=== PATIENT | female | born 1995 | race Two or more races ===

== ENCOUNTER 2025-03-20 17:29 | Emergency (ER) | payer BC, SELFPAY ==
[2025-03-20 17:47] VITALS: BP 164/102; PULSE 107; RESP 20; TEMP 37.1; O2SAT 100; BMI 34.2
--- NOTE | 2025-03-20 17:51 | XR_ITS ---
Examination: Complete OB ultrasound, less than 14 weeks, transabdominal Date and time of exam: March 20, 2025 at 1936 hours INDICATIONS: Onset pelvic pain beginning 2 days ago Technique: Obstetrical ultrasound images less than 14 weeks performed via transabdominal imaging Findings: Uterus 6.8 cm endometrial stripe 1.0 cm No uterine mass or intrauterine gestation Right ovary 4.7 cm arterial flow 38 mm cyst Upper review obscured by bowel gas IMPRESSION: No uterine mass or intrauterine gestation Left ovarian cyst 3.3 x 3.8 x 3.8 cm
--- NOTE | 2025-03-20 17:51 | PD.EDRME ---
Rapid Medical Screening Exam [facility] Arrival date/time: 03/20/25 17:29 29-year-old female with no known medical history presents to the emergency room with a chief complaint of right lower quadrant and right sided pelvic pain x 2 days. Patient is currently 4 weeks . She is a G4, P0. Patient denies any vaginal bleeding or dysuria. I have greeted and performed a focused initial assessment of this patient. A comprehensive ED assessment and evaluation of the patient, analysis of all test results, and completion of the medical decision making process will be conducted by additional ED providers. Chief Complaint: Abdominal Pain Vital signs: Vital Signs Temperature 98.7 F 03/20/25 17:47 Pulse Rate 107 H 03/20/25 17:47 Respiratory Rate 20 03/20/25 17:47 Blood Pressure 164/102 H 03/20/25 17:47 Pulse Oximetry (%) 100 03/20/25 17:47 Oxygen Delivery Method Room Air 03/20/25 17:47 Vital signs reviewed by provider: Yes
[2025-03-20 18:08] LABS: Basophils % (Auto) 0 % (0-2.5); Eosinophils % (Auto) 0 % (0-10); Hematocrit 35.5 % (36.0-46.0); Hemoglobin 12.4 g/dL (12.0-16.0); Immature Granulocytes % (Auto) 0 % (0-0); Immature Granulocytes Auto 0.03 Thou/mm3 (0.00-0.00); Lymphocytes # (Auto) 2.3 Thou/mm3 (1.0-4.8); Lymphocytes % (Auto) 24 % (10-50); Mean Corpuscular HGB Conc 34.9 g/dl (31.0-37.0); Mean Corpuscular Hemoglobin 29.7 pg (25.0-35.0); Mean Corpuscular Volume 85 fL (80-100); Monocytes # (Auto) 0.4 Thou/mm3 (0.0-0.8); Monocytes % (Auto) 5 % (0-12); Neutrophils # (Auto) 6.6 Thou/mm3 (1.8-7.7); Neutrophils % (Auto) 70 % (37-80); Nucleated Red Blood Cell % 0 /100 WBC (0); Platelet Count 251 Thou/mm3 (140-440); RDW Standard Deviation 39.8 fL (36.4-46.3); Red Blood Count 4.17 Miln/mm3 (4.00-5.20); White Blood Count 9.5 Thou/mm3 (3.6-11.0)
--- NOTE | 2025-03-20 18:16 | XR_ITS ---
Examination: Abdomen sonogram, Limited Date and time of exam: March 20, 2025 1945 hours INDICATIONS: Right lower abdominal pelvic pain beginning 2 days ago Technique: Real-time valderrama scale transabdominal sonographic images of the abdomen obtained. Findings: No sonographic visualization appendix IMPRESSION: No sonographic visualization appendix
[2025-03-20 18:32] LABS: Alanine Aminotransferase 15 U/L (10-49); Albumin, Serum 4.4 gm/dL (3.5-5.0); Albumin/Globulin Ratio 1.6 (1.2-2.2); Alkaline Phosphatase 61 U/L (46-116); Anion Gap 11 (7-16); Aspartate Amino Transferase 16 U/L (0-34); BUN/Creatinine Ratio 9 Ratio (12-20); Bilirubin,Total 0.3 mg/dL (0.3-1.2); Blood Urea Nitrogen 7 mg/dL (9-23); Calcium 8.9 mg/dL (8.3-10.6); Calcium (Corrected) 8.9 mg/dL (8.5-10.1); Carbon Dioxide 23.2 mMol/L (20.0-31.0); Chloride 105 mMol/L (98-107); Creatinine (Component) 0.8 mg/dL (0.6-1.3); Estimated Creatinine Clearance 98.5 mL/min (>60); Globulin 2.8 gm/dL (2.3-3.5); Glucose 90 mg/dL (74-106); Osmolality,Calculated 275 (275-295); Potassium 3.5 mMol/L (3.4-5.1); Sodium 139 mMol/L (136-145); Total Protein 7.2 gm/dL (5.7-8.2); eGFR > 60 See Note
[2025-03-20 18:37] LABS: Beta HCG,Quantitative 1837 mIU/mL (<5.0)
[2025-03-20 18:45] LABS: Collection Type, Urine Clean Catch
[2025-03-20 18:57] LABS: Bacteria,Urine Rare; Bilirubin,Urine Negative (Negative); Blood,Urine Negative (Negative); Clarity,Urine Clear (Clear/Hazy); Color,Urine Yellow (Lt Yel-Yel); Glucose, Urine Negative (Negative); Ketones,Urine 3+ (Negative); Leukocyte Esterase,Urine Positive (Negative); Nitrite,Urine Negative (Negative); Protein,Urine Trace (Neg - Trace); RBC,Urine 5 /hpf (0-3); Squamous Epithelial Cell,Urine 15 /hpf (0-5); Urobilinogen,Urine Negative mg/dL (0.0-1.0); WBC,Urine 13 /hpf (0-5)
--- NOTE | 2025-03-20 20:09 | EDNOTE_ITS ---
ED Abdominal Pain RME/HPI General Chief Complaint: Abdominal Pain Stated complaint: Right lower abdominal pain X 2 days, 4 weeks OB Time seen by provider: 03/20/25 18:16 Arrival date/time: 03/20/25 17:29 RME / HPI RME / HPI narrative: 03/20/25 17:29 29-year-old female with no known medical history presents to the emergency room with a chief complaint of right lower quadrant and right sided pelvic pain x 2 days. Patient is currently 4 weeks . She is a G4, P0. Patient denies any vaginal bleeding or dysuria. I have greeted and performed a focused initial assessment of this patient. A comprehensive ED assessment and evaluation of the patient, analysis of all test results, and completion of the medical decision making process will be conducted by additional ED providers. DR CUI MAIN ED EVALUATION: 29 y/o 4-week female presents to ED c/o right-sided pelvic pain, RUE pain, and diarrhea x 2 days. She is . Patient contacted her OB and was advised to come in to ED due to concern for possible ectopic . Patient denies vaginal bleeding, dysuria, foul smelling urine, or any other associated symptoms or aggravating factors. No modifying factors, no radiation, no migration. No other pain reported overall. Related Data Previous Rx's ?Medication ?Instructions ?Recorded alprazolam 0.25 mg tablet (Xanax) 0.25 mg PO BID PRN a nxiety #14 tabs 01/10/24 Allergies Allergy/AdvReac Type Severity Reaction Status Date / Time fentanyl Allergy Verified 03/20/25 17:37 Review of Systems Review of Systems Systems Reviewed: All systems reviewed, normal except as documented Past Medical History Past Medical History PSYCHO/SOCIAL: Positive Anxiety ED Exam Narrative Physical exam: GENERAL APPEARANCE: alert and oriented x 4, well-developed, well-nourished, no acute distress VITALS: All vitals were reviewed and the pulse ox is 100% on room air, which is normal according to my interpretation. HEENT: Normocephalic, atraumatic; pupils equal, round, reactive to light; EOMI; mucous membranes pink, moist; oropharynx clear NECK: Supple LUNGS: CTABL; no wheezes, no rales, no rhonchi HEART: Regular rate, regular rhythm; normal S1, S2; no murmurs ABDOMEN: non distended; normal BS; soft, no tenderness, no guarding, no rebound; no masses, no organomegaly, no hernia BACK: no CVA tenderness EXTREMITIES: atraumatic; no edema NEUROLOGIC: awake; alert and oriented x4; cranial nerves II-XII grossly intact; no focal sensory or motor deficits PSYCHIATRIC: appropriate mood and affect SKIN: warm, dry, normal color; no rashes Course Quality Measures none Orders Category Date Time Status US OB <= 14 weeks fetus Stat Exams 03/20/25 17:51 Completed US abdomen limited Stat Exams 03/20/25 18:16 Completed ABO/RH Type Stat Lab 03/20/25 18:01 Completed Beta HCG,Quantitative Stat Lab 03/20/25 18:01 Completed CBC Stat Lab 03/20/25 18:01 Completed CMP [Comprehensive Metabolic Panel] Stat Lab 03/20/25 18:01 Completed UA [Urinalysis] Stat Lab 03/20/25 18:37 Completed Vital Signs Vital signs: Vital Signs Temperature 98.7 F 03/20/25 17:47 Pulse Rate 107 H 03/20/25 17:47 Respiratory Rate 20 03/20/25 17:47 Blood Pressure 164/102 H 03/20/25 17:47 Pulse Oximetry (%) 100 03/20/25 17:47 Oxygen Delivery Method Room Air 03/20/25 17:47 Abdominal Pain MDM MDM Narrative MDM Narrative:: Scribe Attestation: Belle Beal, marilia scribing for and in the presence of Dr. Cui. Provider Notation: Although this document has been carefully reviewed, there may still be some phonetic and other typographical errors.? These errors are purely grammatical due to imperfections in the software program and should not be construed in any way to? compromise the substance of the patient's medical care during this visit. Patient data External records reviewed:: [facility] previous records (Reviewed prior ED records from 01/10/24. Patient was seen for Acute anxiety.) Clinical information provided by:: patient Social determinants that could affect healthcare access:: none Patient has the following chronic illnesses:: Anxiety How is presenting disease/condition affected by chronic disease/condition?: exacerbated by Evaluation data The following diagnostics were reviewed and interpreted by me:: lab results and radiology exam(s) Lab and/or radiology exams considered but not ordered:: None Interpretation Summary: RADIOLOGY Abdomen US: Patient: SOFIA CORDERO I [facility]. Record#: [id number] Birthdate: 1995 Age/Sex: 29 / F Location: [facility] Attending Dr: Ordering Physician: Sakina Cui MD Date of Service: 03/20/25 Procedure(s): US abdomen limited Accession Number(s): [id number] cc: Nancy Sotelo; Yury Boyd MD; Sakina Cui MD~ Examination: Abdomen sonogram, Limited Date and time of exam: March 20, 2025 1945 hours INDICATIONS: Right lower abdominal pelvic pain beginning 2 days ago Technique: Real-time valderrama scale transabdominal sonographic images of the abdomen obtained. Findings: No sonographic visualization appendix IMPRESSION: No sonographic visualization appendix Dictated By: Yury Boyd MD Signed By: <Electronically signed by Yury Boyd MD in OV> 03/20/252031 US: Patient: SOFIA CORDERO I [facility]. Record#: [id number] Birthdate: 1995 Age/Sex: 29 / F Location: [facility] Attending Dr: Ordering Physician: Carlos Cope Date of Service: 03/20/25 Procedure(s): US OB <= 14 weeks fetus Accession Number(s): [id number] cc: Nancy Sotelo; Carlos Cope; Yury Boyd MD~ Examination: Complete OB ultrasound, less than 14 weeks, transabdominal Date and time of exam: March 20, 2025 at 1936 hours INDICATIONS: Onset pelvic pain beginning 2 days ago Technique: Obstetrical ultrasound images less than 14 weeks performed via transabdominal imaging Findings: Uterus 6.8 cm endometrial stripe 1.0 cm No uterine mass or intrauterine gestation Right ovary 4.7 cm arterial flow 38 mm cyst Upper review obscured by bowel gas IMPRESSION: No uterine mass or intrauterine gestation Left ovarian cyst 3.3 x 3.8 x 3.8 cm Dictated By: Yury Boyd MD Signed By:<Electronically signed by Yury Boyd MD in OV> 03/20/252030 Medications / Prescriptions Medications or Prescriptions considered but not ordered:: None Medication administrations:: See above Consultations Consultation(s) initiated? (list below): No Diagnosis Differential diagnosis abdominal pain: abdominal pain and other (Threatened miscarriage, Ovarian cyst, Incomplete , UTI, Ectopic .) Most likely diagnosis given after review of the tests above:: Abdominal pain in early Admission Indicated Admission indicated?: not indicated Explain why admission is indicated or not indicated:: Patient does not meet admission criteria. Admission Request Was there a request for admission?: No Disposition Plan Disposition Plan: Discharge Discharge Attestation Discharge Attestation: The patient and all family members were given an opportunity to ask questions and understood the discharge instructions. Discharge instructions specifically effects, indications for sooner follow up or return to the emergency department, and the expected course of current diagnosis. Patient condition: Stable Discharge Plan Plan Patient Disposition: HOME (Self Care) Prescriptions/Referrals Prescriptions/Med Rec: No Action alprazolam [Xanax] 0.25 mg tablet 0.25 mg PO BID PRN (Reason: anxiety) Qty: 14 0RF Referrals: Nancy Sotelo FNP-C [Primary Care Provider] - In 1 week Problem List Clinical Impression: Abdominal pain in early Patient/Caregiver Discharge Instructions Education Materials: ED Abdominal Pain Unkn Cause Fem Additional Instructions: Follow-up with your OB doctor on Sunday for recheck. Return to the emergency room if symptoms worsen, do not improve, or other concerns. Print Language: Yakut Stand Alone Forms: Sarina Award Info., Patient Portal Info Letter
[2025-03-20 21:16] VITALS: BP 144/98; PULSE 86; RESP 17; TEMP 36.9; O2SAT 100
== END 2025-03-20 21:47 | disposition home or self-care (01) ==
PROVIDERS: Nurse Practitioner Family; Emergency Provider Emergency Medicine; PCP Nurse Practitioner Family
DX: O34.81 Maternal care for other abnormalities of pelvic organs, first trimester (principal); N83.202 Unspecified ovarian cyst, left side; Z3A.01 Less than 8 weeks gestation of pregnancy
CPT/HCPCS: 36415; 76705; 76801; 80053; 81001; 84702; 85025; 86900; 86901; 99284

== ENCOUNTER 2025-03-22 06:51 | Emergency (ER) | payer BC, SELFPAY ==
[2025-03-22 06:54] VITALS: BMI 34.2
[2025-03-22 07:00] VITALS: BP 129/88; PULSE 91; RESP 16; TEMP 37.1; O2SAT 99
--- NOTE | 2025-03-22 07:15 | XR_ITS ---
Examination: Abdomen sonogram, Limited Date and time of exam: March 22, 2025, 0807 hrs. Indications: Pelvic pain beginning 4 days ago Technique: Real-time valderrama scale transabdominal sonographic images of the abdomen obtained. Findings: No sonographic visualization appendix Impression: No sonographic visualization appendix
--- NOTE | 2025-03-22 07:15 | XR_ITS ---
Examination: Complete OB ultrasound, less than 14 weeks, transabdominal Date and time of exam: March 22, 2025, 0809 hrs. Indications: Pelvic pain beginning 4 days ago Technique: Obstetrical ultrasound images less than 14 weeks performed via transabdominal imaging Findings: Uterus 8.8 cm endometrial stripe 1.25 cm, no uterine mass or intrauterine gestation. Right ovary 5.5 cm arterial flow, 3.7 x 3.3 cm simple cyst Left ovary obscured by bowel gas Impression: No uterine mass or intrauterine gestation Right ovarian simple cyst 3.7 x 3.1 x 3.3 cm
[2025-03-22 08:17] LABS: Collection Type, Urine Clean Catch
[2025-03-22 08:28] LABS: Basophils % (Auto) 1 % (0-2.5); Eosinophils % (Auto) 0 % (0-10); Hemoglobin 12.3 g/dL (12.0-16.0); Immature Granulocytes % (Auto) 1 % (0-0); Immature Granulocytes Auto 0.07 Thou/mm3 (0.00-0.00); Lymphocytes # (Auto) 1.5 Thou/mm3 (1.0-4.8); Lymphocytes % (Auto) 19 % (10-50); Mean Corpuscular HGB Conc 35.1 g/dl (31.0-37.0); Mean Corpuscular Hemoglobin 30.2 pg (25.0-35.0); Mean Corpuscular Volume 86 fL (80-100); Monocytes # (Auto) 0.5 Thou/mm3 (0.0-0.8); Monocytes % (Auto) 6 % (0-12); Neutrophils # (Auto) 5.7 Thou/mm3 (1.8-7.7); Neutrophils % (Auto) 73 % (37-80); Nucleated Red Blood Cell % 0 /100 WBC (0); Platelet Count 233 Thou/mm3 (140-440); RDW Standard Deviation 41.1 fL (36.4-46.3); Red Blood Count 4.07 Miln/mm3 (4.00-5.20); White Blood Count 7.9 Thou/mm3 (3.6-11.0)
--- NOTE | 2025-03-22 08:46 | PD.EDABDPN ---
ED Abdominal Pain RME/HPI General Chief Complaint: Abdominal Pain Stated complaint: ABD PAIN Time seen by provider: 03/22/25 06:59 Arrival date/time: 03/22/25 06:51 This is a case of 39-year-old female who came into the emergency room due to abdominal pain patient is 4 weeks 1 para 0 history of 1 miscarriage with regular checkup patient denies any vaginal bleeding vaginal spotting vaginal discharge fever chills nausea vomiting patient was seen here 2 days ago where everything were normal due to persistence of the symptoms this patient decided to sought consult here in the emergency room Source: patient Limitations: no limitations Related Data Previous Rx's ?Medication ?Instructions ?Recorded alprazolam 0.25 mg tablet (Xanax) 0.25 mg PO BID PRN anxiety #14 tabs 01/10/24 nitrofurantoin 100 mg PO Q12H 10 days #20 caps 03/22/25 monohydrate/macrocrystals 100 mg capsule (Macrobid) Allergies Allergy/AdvReac Type Severity Reaction Status Date / Time fentanyl Allergy Verified 03/22/25 06:55 Review of Systems Review of Systems Systems Reviewed: All systems reviewed, normal except as documented Constitutional Constitutional: Reports system reviewed and no additional complaints, except as documented ENT Ears, Nose, Mouth, and Throat: Denies dysphagia and Denies odynophagia Cardiovascular Cardiovascular: Reports system reviewed and no additional complaints, except as documented Respiratory Respiratory: Reports system reviewed and no additional complaints, except as documented and Reports as per HPI Gastrointestinal Gastrointestinal: Reports system reviewed and no additional complaints, except as documented, Reports as per HPI, Reports abdominal pain, Denies belching, Denies bloating, Denies change in bowel habits, Denies change in stool character, Denies coffee ground emesis, Denies constipation, Denies cramping, Denies diarrhea, Denies dyspepsia, Denies dysphagia, Denies early satiety, Denies excessive flatus, Denies fecal incontinence, Denies heartburn, Denies hematemesis, Denies hematochezia, Denies loose stools, Denies melena, Denies nausea, Denies odynophagia, Denies tenesmus and Denies vomiting Genitourinary Genitourinary: Reports system reviewed and no additional complaints, except as documented, Reports as per HPI, Denies abnormal vaginal bleeding, Denies difficulty voiding, Denies dysuria, Denies urinary urgency, Denies vaginal discharge, Denies vaginal dryness, Denies vaginal odor and Denies vaginal pruritus Musculoskeletal Musculoskeletal: Reports system reviewed and no additional complaints, except as documented and Reports as per HPI Neurologic Neurologic: Reports system reviewed and no additional complaints, except as documented and Reports as per HPI Past Medical History Past Medical History CARDIAC: Negative Congestive Heart Failure RESPIRATORY: Negative Chronic Obstructive Pulmonary Disease (COPD) GASTROINTESTINAL: Positive Gall Bladder Disease GENITOURINARY: Negative Renal Disease ENDOCRINE: Negative Diabetes Mellitus Type 1 or Diabetes Mellitus Type 2 PSYCHO/SOCIAL: Positive Anxiety Social History SMOKING STATUS: Never smoker ED Exam General Limitations: Present no limitations General appearance: Present alert and in no apparent distress Head Head exam: Present atraumatic, normocephalic and normal inspection Eye Eye exam: Present normal appearance, PERRL and EOMI ENT ENT exam: Present normal exam, normal oropharynx and mucous membranes moist Neck Neck exam: Present normal inspection, full ROM and trachea midline; Absent tenderness, meningismus, lymphadenopathy or thyromegaly Chest Chest inspection: Present normal inspection and symmetric chest wall rise Respiratory Respiratory exam: Present normal lung sounds bilaterally; Absent respiratory distress, wheezes, stridor, accessory muscle use or prolonged expiratory phase Cardiovascular Cardiovascular exam: Present regular rate, normal rhythm and normal heart sounds; Absent bradycardia, tachycardia, irregular rhythm or systolic murmur Abdominal Exam Abdominal exam: Present soft, tenderness (Right lower quadrant mild tenderness in suprapubic area no guarding no rebound no rigidity negative psoas negative straight or negative Rovsing's negative McBurney's negative Mata sign negative CVA tenderness no bladder tenderness no tenderness) and normal bowel sounds; Absent distention, guarding, rebound, rigidity, diminished bowel sounds, hyperactive bowel sounds, hypoactive bowel sounds, organomegaly, psoas sign, obturator sign, Amta's sign, Rovsing's sign or tenderness at McBurney's Point Abdominal tenderness: Present RLQ, suprapubic and mild Extremities Exam Extremities exam: Present normal inspection and full ROM; Absent tenderness or normal capillary refill Back Exam Back exam: Present normal inspection and full ROM Neurological Exam Neurological exam: Present alert, oriented X3, CN II-XII intact, normal gait and reflexes normal; Absent motor sensory deficit Psychiatric Psychiatric exam: Present normal affect and normal mood Skin Skin exam: Present warm, dry, intact and normal color Course Quality Measures none Orders Category Date Time Status US OB <= 14 weeks fetus Stat Exams 03/22/25 07:15 Completed US abdomen limited Stat Exams 03/22/25 07:15 Completed ABO/RH Type Stat Lab 03/22/25 07:35 Received Beta HCG,Quantitative Stat Lab 03/22/25 07:35 Completed CBC Stat Lab 03/22/25 07:35 Completed Comprehensive Metabolic Panel Stat Lab 03/22/25 07:35 Completed Lipase Stat Lab 03/22/25 07:35 Completed Urinalysis Stat Lab 03/22/25 07:39 Completed Vital Signs Vital signs: Vital Signs Temperature 98.7 F 03/22/25 07:00 Pulse Rate 91 03/22/25 07:00 Respiratory Rate 16 03/22/25 07:00 Blood Pressure 129/88 H 03/22/25 07:00 Pulse Oximetry (%) 99 03/22/25 07:00 Oxygen Delivery Method Room Air 03/22/25 07:00 Patient is afebrile not tachycardic not tachypneic BP stable not hypoxic oxygen saturation is 99% in room Abdominal Pain MDM MDM Narrative MDM Narrative:: This is a case of 39-year-old female who came into the emergency room due to abdominal pain patient is 4 weeks 1 para 0 history of 1 miscarriage with regular checkup patient denies any vaginal bleeding vaginal spotting vaginal discharge fever chills nausea vomiting patient was seen here 2 days ago where everything were normal due to persistence of the symptoms this patient decided to sought consult here in the emergency room physical examination patient is awake alert oriented not in distress nontoxic looking vital signs stable BP stable not tachycardic not tachypneic afebrile and nonhypoxic abdominal exam mild tenderness in the right lower quadrant and suprapubic area no guarding no rebound no rigidity negative psoas negative straight or negative Rovsing's negative McBurney's negative Mata sign negative CVA tenderness patient blood test showed no leukocytosis no anemia kidney liver function is normal no electrolyte imbalance lipase normal beta hCG increased from 1832 to 3178 patient urinalysis showed WBC in the urine patient ultrasound showed ovarian cyst no intrauterine patient ultrasound of the appendix is negative patient abdominal pain was resolved without medication while waiting in the lobby at this point I discussed with the patient the possibility of threatened she needs to continue following up with OB straight truck driver for checkup and to take care of the ovarian cyst if that seen in 1 week she needs to return here in the emergency room to repeat beta-hCG and pelvic ultrasound for any worsening symptoms she is notified to return in the emergency room immediately or call 911 Patient was discharged with comfortable condition walking with stable gait. Patient verbalized no further complains explained diagnosis and answered patient question. Patient is comfortable with the proposed management plan including the need to follow up with his/her primary care physician and any specialist if applicable Discussed patient for any urgent condition or worsening sx, He/She needed to go to emergency room immediately or call 911. Patient acknowledge the responsibility to follow up as instructed and to monitor her/his symptoms. For any persistence of the symptoms for more than 3-5 days return precaution advised. Discussed the result of the test and was given printed discharge instruction Patient data External records reviewed:: [facility] previous records Clinical information provided by:: patient Social determinants that could affect healthcare access:: none Patient has the following chronic illnesses:: None How is presenting disease/condition affected by chronic disease/condition?: no chronic disease Evaluation data The following diagnostics were reviewed and interpreted by me:: lab results and radiology exam(s) Lab and/or radiology exams considered but not ordered:: Reviewed Interpretation Summary: Reviewed Medications / Prescriptions Medications or Prescriptions considered but not ordered:: Given Medication administrations:: Given Consultations Consultation(s) initiated? (list below): No Diagnosis Differential diagnosis abdominal pain: abdominal pain and other (Threatened miscarriage ovarian cyst urinary tract infection) Most likely diagnosis given after review of the tests above:: Urinary tract infection ovarian cyst Admission Indicated Admission indicated?: not indicated Explain why admission is indicated or not indicated:: Not indicated Admission Request Was there a request for admission?: No Admission Attestation Admission request attestation: Not indicated Disposition Plan Disposition Plan: Discharge Discharge Attestation Discharge Attestation: The patient and all family members were given an opportunity to ask questions and understood the discharge instructions. Discharge instructions specifically effects, indications for sooner follow up or return to the emergency department, and the expected course of current diagnosis. Patient condition: Stable Discharge Plan Plan Patient Disposition: HOME (Self Care) Prescriptions/Referrals Prescriptions/Med Rec: New nitrofurantoin monohyd/m-cryst [Macrobid] 100 mg capsule 100 mg PO Q12H 10 Days Qty: 20 0RF Rx Instructions: must administer with a meal/food No Action alprazolam [Xanax] 0.25 mg tablet 0.25 mg PO BID PRN (Reason: anxiety) Qty: 14 0RF Referrals: Nancy Sotelo FNP-C [Primary Care Provider] - In 1 week Problem List Clinical Impression: Abdominal pain in early , Urinary tract infection, Ovarian cyst, Miscarriage, threatened, early Patient/Caregiver Discharge Instructions Education Materials: Abdominal Pain, Urinary Tract Infections in Women, ED Possible Miscarriage ..., ED Ovarian Cyst Additional Instructions: Follow-up with your primary care physician in 2 days for reevaluation it is very important to see your OB straight truck driver for further evaluation and treatment of ovarian cyst and checkup it is very important to see OB straight truck driver in 1 week if not seen in 1 week go to the emergency room for repeat beta-hCG and pelvic ultrasound for any vaginal bleeding vaginal discharge vaginal spotting nausea vomiting persistent abdominal pain or worsening symptoms return to the emergency room immediately or call 911 increase water intake keep hydrated continue checkup no sex until cleared by your OB gynecology continue and finish the course of antibitoic Print Language: [place] Stand Alone Forms: Sarina Award Info., Patient Portal Info Letter PA/YUKI Supervising Physician MIRNA/YUKI Supervising Physician: dr roberts
[2025-03-22 08:47] LABS: Bacteria,Urine Rare; Bilirubin,Urine Negative (Negative); Blood,Urine Negative (Negative); Clarity,Urine Turbid (Clear/Hazy); Color,Urine Yellow (Lt Yel-Yel); Glucose, Urine Negative (Negative); Ketones,Urine Negative (Negative); Leukocyte Esterase,Urine Positive (Negative); Nitrite,Urine Negative (Negative); PH,Urine 5.5 (5.0-7.0); Protein,Urine Trace (Neg - Trace); RBC,Urine 5 /hpf (0-3); Specific Gravity,Urine 1.031 (1.001-1.035); Squamous Epithelial Cell,Urine 32 /hpf (0-5); Urobilinogen,Urine Negative mg/dL (0.0-1.0); WBC,Urine 25 /hpf (0-5)
[2025-03-22 09:09] LABS: Alanine Aminotransferase 16 U/L (10-49); Albumin/Globulin Ratio 1.6 (1.2-2.2); Alkaline Phosphatase 55 U/L (46-116); Anion Gap 8 (7-16); Aspartate Amino Transferase 15 U/L (0-34); BUN/Creatinine Ratio 10 Ratio (12-20); Bilirubin,Total 0.3 mg/dL (0.3-1.2); Blood Urea Nitrogen 7 mg/dL (9-23); Calcium 8.7 mg/dL (8.3-10.6); Calcium (Corrected) 8.7 mg/dL (8.5-10.1); Chloride 110 mMol/L (98-107); Creatinine (Component) 0.7 mg/dL (0.6-1.3); Estimated Creatinine Clearance 112.5 mL/min (>60); Globulin 2.5 gm/dL (2.3-3.5); Glucose 97 mg/dL (74-106); Lipase 30 U/L (12-53); Osmolality,Calculated 279 (275-295); Potassium 3.6 mMol/L (3.4-5.1); Sodium 141 mMol/L (136-145); Total Protein 6.5 gm/dL (5.7-8.2); eGFR > 60 See Note
[2025-03-22 10:05] LABS: Beta HCG,Quantitative 3178 mIU/mL (<5.0)
[2025-03-22 10:33] VITALS: BP 129/68; PULSE 68; RESP 19; TEMP 37.1; O2SAT 98
== END 2025-03-22 10:34 | disposition home or self-care (01) ==
PROVIDERS: Nurse Practitioner Family; Emergency Provider Emergency Medicine; PCP Nurse Practitioner Family
DX: O20.0 Threatened abortion (principal); O23.41 Unspecified infection of urinary tract in pregnancy, first trimester; O34.81 Maternal care for other abnormalities of pelvic organs, first trimester; N83.291 Other ovarian cyst, right side; Z3A.01 Less than 8 weeks gestation of pregnancy
CPT/HCPCS: 36415; 76705; 76801; 80053; 81001; 81025; 83690; 84702; 84703; 85025; 86900; 86901; 99284

== ENCOUNTER 2025-05-11 14:08 | Emergency (ER) | payer BC, SELFPAY ==
[2025-05-11 14:40] VITALS: BP 130/87; PULSE 78; RESP 18; TEMP 36.9; O2SAT 98; BMI 32.2
--- NOTE | 2025-05-11 14:47 | PD.EDRME ---
Rapid Medical Screening Exam E Arrival date/time: 05/11/25 14:08 29-year-old female with no known medical history presents to the emergency room with a chief complaint of nausea vomiting x 3 days. Patient states she is currently . Patient has been to her [facility] MANAGER and has been prescribed Zofran and another antiemetic medication and neither have worked. The patient states she is unable to hold down any fluids. I have greeted and performed a focused initial assessment of this patient. A comprehensive ED assessment and evaluation of the patient, analysis of all test results, and completion of the medical decision making process will be conducted by additional ED providers. Chief Complaint: Nausea/Vomiting/Diarrhea Time Seen by Provider: 05/11/25 14:32 Vital signs: Vital Signs Temperature 98.5 F 05/11/25 14:40 Pulse Rate 78 05/11/25 14:40 Respiratory Rate 18 05/11/25 14:40 Blood Pressure 130/87 H 05/11/25 14:40 Pulse Oximetry (%) 98 05/11/25 14:40 Oxygen Delivery Method Room Air 05/11/25 14:40 Vital signs reviewed by provider: Yes
[2025-05-11 15:16] LABS: Basophils # (Auto) 0.0 Thou/mm3 (0.0-0.2); Basophils % (Auto) 0 % (0-2.5); Eosinophils # (Auto) 0.0 Thou/mm3 (0.0-0.5); Eosinophils % (Auto) 0 % (0-10); Hematocrit 37.2 % (36.0-46.0); Hemoglobin 13.0 g/dL (12.0-16.0); Immature Granulocytes Auto 0.03 Thou/mm3 (0.00-0.00); Lymphocytes # (Auto) 1.5 Thou/mm3 (1.0-4.8); Lymphocytes % (Auto) 15 % (10-50); Mean Corpuscular HGB Conc 34.9 g/dl (31.0-37.0); Mean Corpuscular Hemoglobin 30.0 pg (25.0-35.0); Mean Corpuscular Volume 86 fL (80-100); Monocytes # (Auto) 0.4 Thou/mm3 (0.0-0.8); Monocytes % (Auto) 4 % (0-12); Neutrophils # (Auto) 7.9 Thou/mm3 (1.8-7.7); Neutrophils % (Auto) 80 % (37-80); Nucleated Red Blood Cell # 0.00 Thou/mm3 (0.00-0.00); Nucleated Red Blood Cell % 0 /100 WBC (0); Platelet Count 245 Thou/mm3 (140-440); RDW Standard Deviation 40.3 fL (36.4-46.3); Red Blood Count 4.33 Miln/mm3 (4.00-5.20); White Blood Count 9.8 Thou/mm3 (3.6-11.0)
[2025-05-11 15:50] LABS: Alanine Aminotransferase 9 U/L (10-49); Albumin, Serum 4.2 gm/dL (3.5-5.0); Albumin/Globulin Ratio 1.6 (1.2-2.2); Alkaline Phosphatase 70 U/L (46-116); Anion Gap 14 (7-16); Aspartate Amino Transferase 12 U/L (0-34); BUN/Creatinine Ratio 10 Ratio (12-20); Bilirubin,Total 0.4 mg/dL (0.3-1.2); Blood Urea Nitrogen 6 mg/dL (9-23); Calcium 9.8 mg/dL (8.3-10.6); Calcium (Corrected) 9.8 mg/dL (8.5-10.1); Carbon Dioxide 20.0 mMol/L (20.0-31.0); Chloride 105 mMol/L (98-107); Creatinine (Component) 0.6 mg/dL (0.6-1.3); Estimated Creatinine Clearance 127.3 mL/min (>60); Globulin 2.7 gm/dL (2.3-3.5); Glucose 88 mg/dL (74-106); Magnesium 1.5 mg/dL (1.6-2.6); Osmolality,Calculated 274 (275-295); Potassium 3.8 mMol/L (3.4-5.1); Sodium 139 mMol/L (136-145); Total Protein 6.9 gm/dL (5.7-8.2); eGFR > 60 See Note
--- NOTE | 2025-05-11 16:51 | EDNOTE_ITS ---
<Statement entered by Sakina Cui MD - 05/25/25 06:25> I, Sakina Cui MD, have reviewed the history, exam, and assessment of the patient. I have evaluated the patient independently and agree with the plan of care documented by [ ]. All diagnostic studies were reviewed and discussed. I confirm the diagnosis as documented by the Resident. I was present during the Medical Decision Making for this patient. The patient's plan of care was created between myself and the Resident and consistent with our discussion of the patient's case. ED General RME/HPI General Chief complaint: Nausea/Vomiting/Diarrhea Stated complaint: N/V, SOB, WEAK; PREG 12 WKS Time Seen by Provider: 05/11/25 14:32 Arrival date/time: 05/11/25 14:08 RME / HPI RME / HPI narrative: 05/11/25 14:08 29-year-old female with no known medical history presents to the emergency room with a chief complaint of nausea vomiting x 3 days. Patient states she is currently . Patient has been to her [employer] and has been prescribed Zofran and another antiemetic medication and neither have worked. The patient states she is unable to hold down any fluids. I have greeted and performed a focused initial assessment of this patient. A comprehensive ED assessment and evaluation of the patient, analysis of all test results, and completion of the medical decision making process will be conducted by additional ED providers. 29-year-old female with no past medical history comes into the ED due to intractable nausea and vomiting. Patient is A1 and states that his currently 12 weeks . Patient states that she has had no issues in her current and has been following up outpatient with her [employer], but that for 3 days ago she has been unable to hold any food down as she has been cons tantly vomiting with anything that she eats or drinks. She has been taking Zofran at home prescribed by her [employer]. States it has not helped. Patient states that she has also felt dizzy and weak likely due to not being able to hold any food down. She also mention that she has had minimal bowel movements and small portion likely because she has not eaten anything. Otherwise denies any other associated symptoms. Denies any vaginal spotting, vaginal discharge, abdominal pain, or any trauma. Denies any smoking, drugs, alcohol Taking Zofran p.o. at home and vitamins Related Data Previous Rx's ?Medication ?Instructions ?Recorded alprazolam 0.25 mg tablet (Xanax) 0.25 mg PO BID PRN a nxiety #14 tabs 01/10/24 Allergies Allergy/AdvReac Type Severity Reaction Status Date / Time fentanyl Allergy Severe Rash Verified 05/11/25 14:12 Review of Systems Review of Systems Systems Reviewed: All systems reviewed, normal except as documented Past Medical History Past Medical History CARDIAC: Negative Congestive Heart Failure RESPIRATORY: Negative Chronic Obstructive Pulmonary Disease (COPD) GASTROINTESTINAL: Positive Gall Bladder Disease GENITOURINARY: Negative Renal Disease ENDOCRINE: Negative Diabetes Mellitus Type 1 or Diabetes Mellitus Type 2 PSYCHO/SOCIAL: Positive Anxiety Social History SMOKING STATUS: Never smoker ED Exam Narrative Physical exam: Gen: A&O X 3, NAD HEENT: NCAT, EOMI, Pupils reactive GILES, not icteric. External ears normal. No rhinorrhea. Moist mucous membranes. Neck: Supple, full range of motion, no observable masses, No meningeal sign. Lungs: No Respiratory distress, clear bilateral. CV: RRR, no murmurs. Abdomen: Soft, nondistended, No rebound tenderness. MSK: No joint swelling, no redness, peripheral pulses presents, lumbar with no edema. Skin: No rashes, petechiae, lesions. Neuro: No focal neurological deficits appreciated, sensory and motor intact. Psych: Cooperative, appropriate mood and effect. Course Quality Measures none Orders Category Date Time Status Insert IV STAT Care 05/11/25 14:46 Active CBC Stat Lab 05/11/25 15:00 Completed CMP [Comprehensive Metabolic Panel] Stat Lab 05/11/25 15:00 Completed Mag [Magnesium] Stat Lab 05/11/25 15:00 Completed UA, C/S IF [Urinalysis, C/S if Indicated] Stat Lab 05/11/25 14:47 Ordered Magnesium Sulfate 2 GM Ivpb [Magnesium Sulfate Ivpb] Med 05/11/25 16:43 Active 2 gm in 50 ml IV X1 Metoclopramide Inj [Reglan Inj] Med 05/11/25 18:00 Once 5 mg IVP X1 ONE Ondansetron Inj [Zofran Inj] Med 05/11/25 14:46 Discontinued 4 mg IVP X1 ONE Pyridoxine Inj [Vitamin B-6 Inj] Med 05/11/25 18:00 Once 100 mg IM X1 ONE Sodium Chloride 0.9% 1000 ml [Ns] 1,000 ml Med 05/11/25 14:47 Discontinued IV 999 mls/hr Vital Signs Vital signs: Vital Signs Temperature 98.5 F 05/11/25 14:40 Pulse Rate 78 05/11/25 14:40 Respiratory Rate 18 05/11/25 14:40 Blood Pressure 130/87 H 05/11/25 14:40 Pulse Oximetry (%) 98 05/11/25 14:40 Oxygen Delivery Method Room Air 05/11/25 14:40 Discharge Plan Plan Patient Disposition: HOME (Self Care) Prescriptions/Referrals Prescriptions/Med Rec: No Action alprazolam [Xanax] 0.25 mg tablet 0.25 mg PO BID PRN (Reason: anxiety) Qty: 14 0RF Referrals: Chris Priest MD [Primary Care Provider] - In 1 week Problem List Clinical Impression: Nausea & vomiting Patient/Caregiver Discharge Instructions Other Activity Instructions:: Follow-up primary care physician within 1 to 2 days Follow-up with your [employer] within the next 2 or 3 days Recommend frequent small meals along with proper oral hydration. Continue Zofran as prescribed by [employer]. Come back to the ER if symptoms persist or worsen. Education Materials: ED Vomiting (Adult) Print Language: Iraqi Stand Alone Forms: Sarina Award Info., Patient Portal Info Letter MDM Narrative MDM hospital course: Patient was seen and evaluated by myself. Diagnostic labs were reviewed. Labs showed low magnesium, otherwise unremarkable. Ordered magnesium, 1L IVF, and zofran. If patient passes p.o. trial and is not nauseated or vomiting anymore patient can be discharged home and continue Zofran as prescribed by her [employer]. Ordered vitamin B6 and reglan. Patient will have PO trial and if passes will be discharged. Case disclosed with Attending Dr. See Wyatt PGY2 Disclaimer: Even though this this note was dictated by speech recognition and even though it was carefully revised there may still be minor errors in lead fabricator due to voice recognition software. Medication Administration(s) Medication Administration History Magnesium Sulfate (Magnesium Sulfate Ivpb) 2 gm in 50 mls @ 25 mls/hr IV X1 ONE Stop: 05/11/25 18:42 Last Admin: 05/11/25 17:22 Dose: 25 mls/hr Documented By: MICAH Discontinued Medications Sodium Chloride (Ns) 1,000 mls @ 999 mls/hr IV .Q1H1M ONE Stop: 05/11/25 15:47 Last Admin: 05/11/25 17:21 Dose: 999 mls/hr Documented By: MICAH Ondansetron HCl (Ondansetron Inj 2 Mg/Ml Inj 2 Ml) 4 mg IVP X1 ONE; Protocol Stop: 05/11/25 14:47 Last Admin: 05/11/25 17:21 Dose: 4 mg Documented By: MICAH
[2025-05-11] MEDS: SODIUM CHLORIDE 0.9% 1000 ML 1,000 ML 999 ML IV (17:21)
[2025-05-11] MEDS: ONDANSETRON INJ 2 MG/ML INJ 2 ML 4 MG IVP (17:21)
[2025-05-11] MEDS: Magnesium Sulfate 2 GM Ivpb 2 GM/50 ML BAG IV (17:22)
[2025-05-11] MEDS: METOCLOPRAMIDE INJ 5 MG/ML VIAL 2 ML IVP (18:37)
== END 2025-05-11 19:47 | disposition home or self-care (01) ==
PROVIDERS: Nurse Practitioner Family; PCP Family Medicine
DX: O21.9 Vomiting of pregnancy, unspecified (principal); Z3A.12 12 weeks gestation of pregnancy
CPT/HCPCS: 36415; 80053; 81001; 81025; 83735; 84702; 85025; 96365; 96366; 96372; 96375; 99283; J2405; J2765; J3415; J3475; J7030